=== PATIENT | female | born 1995 | race Hispanic/Latino ===

== ENCOUNTER 2018-10-12 16:59 | Outpatient (CLI) | payer OTHER ==
[2018-10-12 17:43] LABS: Hemoglobin 10.9 g/dL (12.0-16.0); Mean Corpuscular HGB CONC 33.6 g/dL (32.0-36.0); Mean Corpuscular Hemoglobin 30.1 pg (27.0-31.0); Mean Corpuscular Volume 89.7 fL (78.0-98.0); Mean Platelet Volume 7.5 fL (7.4-10.4); Platelet Count 315 thou/uL (130-400); RBC Distribution Width 12.1 % (11.5-14.5); Red Blood Cell (RBC) Count 3.61 mill/uL (4.20-5.40); White Blood Cell (WBC) Count 8.6 thou/uL (4.8-10.8)
== END 2018-10-12 17:00 | disposition home or self-care (01) ==
LOC: LABBT 16:59
PROVIDERS: ATTEND Student in an Organized Health Care Education/Training Program
DX: Z01.812 Encounter for preprocedural laboratory examination (principal); O02.1 Missed abortion
CPT/HCPCS: 85027; 86850; 86900; 86901

== ENCOUNTER 2018-10-13 10:35 | Day surgery (SDC) | payer OTHER ==
[2018-10-12 17:30] VITALS: BMI 25.4
[2018-10-13] MEDS ORDERED: Midazolam HCl 2 mg/2 ml Vial ONE (11:49)
[2018-10-13] MEDS ORDERED: Ketamine 50 MG/ML (10ML VIAL) ONE (11:49)
[2018-10-13] MEDS ORDERED: levETIRAcetam 500 MG/100 ML PREMIX BAG ONE (11:49)
[2018-10-13] MEDS ORDERED: Ondansetron PF 4 MG/2 ML Vial ONE (12:47)
[2018-10-13] MEDS ORDERED: Glycopyrrolate 0.2 MG/ML 5 ML SYRINGE ONE (12:47)
[2018-10-13] MEDS ORDERED: Esmolol 100 MG/10 ML VIAL ONE (12:47)
[2018-10-13] MEDS ORDERED: Succinylcholine Chloride 20 MG/ML 10 ml SYRINGE FS ONE (12:47)
[2018-10-13] MEDS ORDERED: Lidocaine 1% PF 5 ML VIAL ONE (12:47)
[2018-10-13] MEDS ORDERED: PROPOFOL 200 MG/20 ML VIAL ONE (12:47)
[2018-10-13] MEDS ORDERED: Fentanyl 100 MCG/2 ML VIAL ONE (13:40)
--- NOTE | 2018-10-13 14:07 | OP ---
DATE OF OPERATION: 10/13/2018 PREOPERATIVE DIAGNOSIS: Incomplete at 8 weeks. POSTOPERATIVE DIAGNOSIS: Incomplete at 8 weeks. PROCEDURE: Suction dilation and curettage. ANESTHESIA: General endotracheal. ATTENDING SURGEON: Magdalene Sainz M.D. SOLUTION MAKER SURGEON: None. ESTIMATED BLOOD LOSS: 100 mL. IVF: Pending. URINE OUTPUT: 120 mL of clear urine at the beginning. PATHOLOGY: Products of conception. COMPLICATIONS: None. DRAINS: None. FINDINGS: An 8-week size retroverted uterus, cervix dilated 1 cm on exam, small amount of products o f conception retrieved on suction curettage. There is a gritty texture to all uterine monsivais at the c onclusion and no active bleeding from the cervix. OPERATIVE TECHNIQUE: The patient was taken to the operating room where general anesthesia was obtain ed without difficulty. The patient was prepped and draped in a sterile fashion in the dorsal lithoto my position. After draining the bladder, a speculum was placed in the vagina. The anterior lip of t he cervix was grasped with a ring forceps. The cervix was previously dilated and the largest dilator passed easily. The 8 mm suction curette was then assembled on the suction machine and a test pressu re was performed and a maximum pressure of 55 mm was set on the machine. The 8 mm suction curette wa s then inserted into the uterine fundus. Suction was applied and the suction curette was turned in c ircles slowly coming from the fundus to the cervix with the curette while on pressure and holding rin g forceps to steady the uterus and bring the uterus into a mid position. A second pass was performed and this was the one that products of conception returned through the tubing. At that time, suction was turned off and sharp curettage was performed and the uterine monsivais were noted to be gritty. The re was some slight bleeding from the uterus at that time and again the suction curette was passed to the uterine fundus and turned onto the maximum 55 mmHg pressure and passed x2. There was minimal ble eding following this. The speculum was removed. The uterus was then massaged for improved uterine t one. The speculum was replaced. There was no active bleeding from the cervix and the ring forceps w as removed off the cervix and this area was hemostatic. All instruments were removed from the vagina . The patient tolerated the procedure well. Sponge, lap and needle counts were correct x2. The pat ient was taken to recovery room in stable condition. The patient had taken doxycycline the morning o f surgery and will continue this for approximately 36 additional hours.
== END 2018-10-13 15:50 | disposition home or self-care (01) ==
LOC: SDC 10:35
PROVIDERS: ATTEND Student in an Organized Health Care Education/Training Program
PROC: 10D17ZZ Extraction of Products of Conception, Retained, Via Natural or Artificial Opening (ICD-10-PCS; principal; 2018-10-13)
DX: O03.4 Incomplete spontaneous abortion without complication (principal); Z79.2 Long term (current) use of antibiotics; Z79.899 Other long term (current) drug therapy
CPT/HCPCS: J1953; J2001; J2250; J2405; J2704; J3010

== ENCOUNTER 2019-08-10 13:11 | Outpatient (CLI) | payer OTHER ==
--- NOTE | 2019-08-10 13:49 | ULT ---
ULTRASOUND WITH DOPPLER DUPLEX VENOUS LOWER EXTREMITY BILATERAL: CPT: 20701 ICD-10-PCS: B54D INDICATION: Bilateral leg pain, patient. TECHNIQUE: Color flow Doppler, spectral waveform analysis of pulsed Doppler, and lopez-scale imaging with rex zoraida and augmentation, were used to evaluate the bilateral common femoral, femoral, popliteal, sheet metal worker apprentice ior tibial, and superficial femoral, veins; and the proximal portions of the profunda femoral and gre ater saphenous, veins. FINDINGS: There is appropriate compressibility and flow within the imaged deep vein system of each lower extrem ity without evidence of deep venous thrombosis. IMPRESSION: No deep venous thrombosis. POS: [facility]
== END 2019-08-10 13:12 | disposition home or self-care (01) ==
LOC: BICULT 13:11
PROVIDERS: ATTEND Student in an Organized Health Care Education/Training Program
DX: M79.604 Pain in right leg (principal); M79.605 Pain in left leg
CPT/HCPCS: 93970

== ENCOUNTER 2019-12-04 17:53 | Day surgery (SDC) | payer OTHER ==
[2019-12-04 18:36] VITALS: BP 113/75; TEMP 98.4
[2019-12-04 18:41] VITALS: BMI 28.9
[2019-12-04] MEDS ORDERED: hydrALAZINE 20 MG/ML VIAL SLOW IVP PRN (19:47)
[2019-12-04 19:52] LABS: Amnisure Internal Control QC ACCEPTABLE (ACCEPTABLE); Amnisure Test No Membranes Rupture (No Rupture)
--- NOTE | 2019-12-04 21:35 | ULT ---
LIMITED OB ULTRASOUND: 12/04/19 HISTORY: 39 week intrauterine . Patient experiencing contractions, question loss of amniotic fluid. COMPARISON: None. FINDINGS: There is evidence of a single intrauterine gestation in cephalic presentation. The cardiac Doppler de monstrates heart tones with a heart rate of 143 beats per minute. The placenta is located anteriorly without findings to suggest placenta previa. There is a hypoechoic area seen within the c entral aspect of the placenta which does not demonstrate flow and may represent a venous kitchen or fibr in deposition. The cervix is obscured due to shadowing from head. Amniotic fluid index is calculated at 18.4 c m. anatomical structures were not evaluated on this exam. IMPRESSION: 1. Single intrauterine gestation in cephalic presentation with heart tones documented. 2. Amniotic fluid index is calculated at 18.4 cm. POS: [facility]
--- NOTE | 2019-12-05 04:15 | SS ---
DATE OF ADMISSION: 12/04/2019 DATE OF DISCHARGE: 12/04/2019 REGULAR PHYSICIAN: Magdalene Sainz MD EVALUATING PHYSICIAN: Emil Johnson MD CHIEF COMPLAINT: Leakage of fluid. HISTORY OF PRESENT ILLNESS: Ms. Castro is a 24-year-old G2, P0, AB1 with an estimated date of confinement of 12/12/2019, who presents complaining of loss of fluid at approximately 5 p.m. today. She has had irregular contractions through the day. She denies vaginal bleeding or decreased movement. Her care has been with Dr. Sainz and has been without complications. PAST MEDICAL HISTORY: None. PAST SURGICAL HISTORY: Appendectomy and D and C. CURRENT MEDICATIONS: vitamins and Pepcid [id number] p.r.n. ALLERGIES: NO KNOWN ALLERGIES. SOCIAL HISTORY: Denies tobacco, alcohol, or drug use. FAMILY HISTORY: Unremarkable. REVIEW OF SYSTEMS: Denies nausea, vomiting, fever, chills, or vaginal bleeding. PHYSICAL EXAMINATION: VITAL SIGNS: Her vital signs are stable. She is afebrile. GENERAL: She is pleasant and in no acute distress. ABDOMEN: Soft, nontender, and gravid. Sterile speculum exam shows no pooling of fluid. Vaginal exam shows the cervix to be 1 cm dilated, 60% effaced with the vertex at -1. AmniSure returns negative. Due to her strong history, an ultrasound was obtained. Her baby is vertex with an anterior placenta and an ARMANDO of 18.4. ASSESSMENT: 1. A 39-week intrauterine . 2. No evidence of ruptured membranes. PLAN: The patient will be dismissed home with precautions. She voiced understanding of her discharge instructions and has an appointment with Dr. Sainz later this week. Job ID: [id number]
== END 2019-12-04 20:45 | disposition home or self-care (01) ==
LOC: L&D/OP 17:53
PROVIDERS: ATTEND Student in an Organized Health Care Education/Training Program
DX: O99.89 Other specified diseases and conditions complicating pregnancy, childbirth and the puerperium (principal); N89.8 Other specified noninflammatory disorders of vagina; O47.1 False labor at or after 37 completed weeks of gestation; O09.293 Supervision of pregnancy with other poor reproductive or obstetric history, third trimester; Z3A.39 39 weeks gestation of pregnancy
CPT/HCPCS: 76815; 84112; 99283

== ENCOUNTER 2019-12-11 19:30 | Inpatient (IN) | payer OTHER ==
[2019-12-13] MEDS ORDERED: Ibuprofen 800 MG TAB PO PRN (04:42)
[2019-12-13] MEDS ORDERED: Methylergonovine 0.2 MG/ML VIAL IM PRN (04:42)
[2019-12-13] MEDS ORDERED: Misoprostol 200 MCG TAB PR PRN (04:42)
[2019-12-13] MEDS ORDERED: Zolpidem Tartrate 5 MG TAB PO PRN (04:42)
[2019-12-13] MEDS ORDERED: NS / Oxytocin 40 units/1000ml 1,000 ML IV PRN (04:42)
[2019-12-13] MEDS ORDERED: Ondansetron PF 4 MG/2 ML Vial IVP PRN ×2 (04:42→13:42)
[2019-12-13] MEDS ORDERED: HYDROcodone/Acetaminophen 5/325 mg Tablet PO PRN ×3 (04:42→13:42)
[2019-12-13] MEDS ORDERED: Misoprostol 100 MCG TAB VAG SCH (04:42)
[2019-12-13] MEDS ORDERED: Acetaminophen 500 MG TAB PO PRN (04:42)
[2019-12-13] MEDS ORDERED: Lidocaine 1% (PF) 30 ML VIAL SC PRN (04:42)
[2019-12-13] MEDS ORDERED: hydrALAZINE 20 MG/ML VIAL SLOW IVP PRN ×2 (04:42→13:42)
[2019-12-13] MEDS ORDERED: Carboprost 250 MCG/ML AMP IM PRN (04:42)
[2019-12-13] MEDS ORDERED: Diphenoxylate HCl/Atropine Tablet PO PRN (04:42)
[2019-12-13] MEDS ORDERED: Promethazine HCl 25 MG/ML VIAL IM PRN ×2 (04:42→13:42)
[2019-12-13] MEDS ORDERED: NS w/ Oxytocin 10 units 500 ML IV SCH (04:42)
[2019-12-13 04:43] VITALS: BMI 29.0
[2019-12-13] MEDS: Lactated Ringer's 1,000 ML IV SCH ×2 (04:50→14:42)
[2019-12-13 05:16] LABS: Hemoglobin 11.8 g/dL (12.0-16.0); Mean Corpuscular HGB CONC 33.5 g/dL (32.0-36.0); Mean Corpuscular Hemoglobin 29.3 pg (27.0-31.0); Mean Corpuscular Volume 87.5 fL (78.0-98.0); Mean Platelet Volume 10.1 fL (7.4-10.4); Platelet Count 176 thou/uL (130-400); RBC Distribution Width 13.8 % (11.5-14.5); Red Blood Cell (RBC) Count 4.01 mill/uL (4.20-5.40); White Blood Cell (WBC) Count 12.5 thou/uL (4.8-10.8)
[2019-12-13 05:53] LABS: Syphilis Antibody Nonreactive (Nonreactive); Syphilis Antibody Index 0.03 S/CO (<1.00 Non-Reactive)
[2019-12-13 06:00] LABS: HBSAg Index 0.21 S/CO (0-0.99); Hep B Surf Ag Non-Reactive S/CO (NonReactive)
--- NOTE | 2019-12-13 09:05 | PDOC.LDHP ---
Labor and Delivery H&P Chief complaint: scheduled induction HPI: 24yo at 40w1d by LMP here for elective IOL. +painful ctx. No VB LOF. Good FM Current gestational age (weeks): 40 Due date: 12/12/19 Dating criteria: last menstrual period Grav: 2 Para: 0 Current complications: none Abnormal US findings: No Past Medical History: anxiety Current medications: pre- vitamins Previous surgical history: dilation and curettage (, wisdom teeth, appy) Allergies/Adverse Reactions: Allergies Allergy/AdvReac Type Severity Reaction Status Date / Time No Known Allergies Allergy Verified 12/13/19 04:38 Social history: none - Physical Exam Vital signs reviewed and normal: yes General: breathing through contractions Heart: RRR Lungs: CTAB Abdomen: gravid Extremeties: no edema FHT: category 1 [place] contractions every: 2-3min - Vaginal Exam cm dilated: 5 Effacement: 100% Station: -1 (arom clear) - OB Labs Blood type: O RH: positive Antibody Screen: negative HIV: negative RPR: negative HEPSAg: negative 1 hour GCT: negative GBS: negative Urine drug screen: negative Rubella: immune - Assessment L&D Assessment: term patient in labor - Plan Plan: admit to L&D, labor augmentation if indicated, informed consent obtained, anesthesia consult for pain management
[2019-12-13] MEDS: Butorphanol Tartrate 1 MG/ML VIAL SLOW IVP PRN ×2 (09:24→09:41)
[2019-12-13] MEDS ORDERED: Misoprostol 200 MCG TAB ONE (11:15)
--- NOTE | 2019-12-13 12:23 | PDOC.OPDEL ---
OB Operative/Delivery Note Delivery Dr/Surgeon: Emeli Assist: n/a Pre-Delivery Diagnosis: elective induction Procedure/Post Delivery Dx: spontaneous vaginal delivery Weeks gestation: 40 Anesthesia: local - Findings A Sex: male Weight: 7 lb 12 oz - 1 min: 7 - 5 min: 9 - Additional Findings/Plan Placenta delivered: spontaneous Repaired Obstetrical Laceration: 1st degree Estimated blood loss: 500 Compilations/Other Findings: brief shoulder dystocia, left shoulder anterior, relieved with tato, suprapubic from the patients left side and [place] maneuver. Total time on perineum < 1min, Infant spontaneous moving bilateral upper extremities. Post delivery plan: routine recovery
[2019-12-13] MEDS ORDERED: Lanolin Ointment 7 GM TUBE TOP PRN (13:42)
[2019-12-13] MEDS ORDERED: Milk Of Magnesia 30 ML UDCUP PO PRN (13:42)
[2019-12-13] MEDS ORDERED: Adacel (T-DAP) 0.5 ML SYRINGE IM ONE (13:42)
[2019-12-13] MEDS ORDERED: diphenhydrAMINE 25 MG CAP PO PRN (13:42)
[2019-12-13] MEDS ORDERED: NS / Oxytocin 40 units/1000ml 1,000 ML IV SCH (13:42)
[2019-12-13] MEDS ORDERED: Benzocaine-Menthol 82.5 ML CAN TOP PRN (13:42)
[2019-12-13] MEDS ORDERED: Preparation H Ointment 28 GM TUBE PR PRN (13:42)
[2019-12-13] MEDS ORDERED: Bisacodyl 10 MG SUPP PR PRN (13:42)
[2019-12-13] MEDS: Ibuprofen 800 MG TAB PO SCH ×2 (15:40→23:42)
[2019-12-13] MEDS: Ferrous Sulfate 325 MG TAB PO SCH (16:55)
[2019-12-13] MEDS: Docusate Calcium (SURFAK) 240 MG CAP PO SCH (23:42)
[2019-12-14] MEDS: Ibuprofen 800 MG TAB PO SCH ×3 (06:45→21:44)
--- NOTE | 2019-12-14 08:21 | PDOC.PP ---
Post Progress Note Post Day #: 1 PO intake tolerated: yes Flatus: yes Ambulation: yes Vital Signs (12 hours) Temp Pulse Resp BP Pulse Ox 12/14/19 04:26 98.4 F 89 18 104/55 L 99 12/13/19 23:43 98.9 F 95 18 108/59 L 98 Weight Weight 149 lb - Physical Examination General: NAD Respiratory: non-labored breathing Abdominal: no distention, appropriately TTP Fundus firm & at: umb Skin: no rash Neurological: no gross focal deficits Psychiatric: normal affect Result Diagrams: 12/13/19 05:04 Additional Labs: Post Labs Blood Type O POSITIVE 12/13/19 05:04 Hep Bs Antigen Non-Reactive S/CO (NonReactive) 12/13/19 05:04 - Assessment/Plan PPD1 s/p TSVD VSSAF Doing well lochia < menses Rh pos RImm Cont PP shelter tomorrow
[2019-12-14] MEDS: Ferrous Sulfate 325 MG TAB PO SCH ×2 (09:18→13:59)
[2019-12-14] MEDS: Docusate Calcium (SURFAK) 240 MG CAP PO SCH ×2 (09:19→21:44)
[2019-12-14] MEDS: Prenatal Vitamin 1 TAB PO SCH (09:19)
[2019-12-15] MEDS: Ibuprofen 800 MG TAB PO SCH ×2 (05:44→13:36)
[2019-12-15 08:52] VITALS: BP 104/67; TEMP 98
[2019-12-15] MEDS: Prenatal Vitamin 1 TAB PO SCH (09:11)
[2019-12-15] MEDS: Docusate Calcium (SURFAK) 240 MG CAP PO SCH (09:11)
[2019-12-15] MEDS: Ferrous Sulfate 325 MG TAB PO SCH (09:13)
== END 2019-12-15 14:20 | disposition home or self-care (01) | DRG 807 ==
LOC: L&D-LIB 12-13 04:12 → 3SE 12-13 14:37
PROVIDERS: ADMIT Student in an Organized Health Care Education/Training Program; ATTEND Student in an Organized Health Care Education/Training Program
PROC: 10E0XZZ Delivery of Products of Conception, External Approach (ICD-10-PCS; principal; 2019-12-13)
PROC: 10907ZC Drainage of Amniotic Fluid, Therapeutic from Products of Conception, Via Natural or Artificial Opening (ICD-10-PCS; 2019-12-13)
PROC: 0HQ9XZZ Repair Perineum Skin, External Approach (ICD-10-PCS; 2019-12-13)
DX: O99.344 Other mental disorders complicating childbirth (principal); Z37.0 Single live birth; Z3A.40 40 weeks gestation of pregnancy; F41.9 Anxiety disorder, unspecified; O70.0 First degree perineal laceration during delivery; O66.0 Obstructed labor due to shoulder dystocia
CPT/HCPCS: 36415; 84112; 85027; 86780; 86850; 86900; 86901; 87340; J0595; J2590